=== PATIENT | female | born 1940 | race Caucasian/White ===

== ENCOUNTER 2016-05-03 11:17 | Inpatient (IN) | payer MEDICARE, OTHER ==
[~2016-05-03] VITALS: Ht 157.5 cm; Wt 54.1 kg
[~2016-05-03 11:17] MED LIST: ALTACE2.5 MG PO; ASA325 MG PO; BUSPAR5 MG PO; COLACE-DPS100 MG PO; GLUCOPHAGE-DPS500 MG PO; HABITROL DPS21 MG TD; LEXAPRO DPS10 MG PO; MEMANTINE HCL10 MG PO; MIRTAZAPINE15 MG PO; PLAVIX75 MG PO; PRAVACHOL20 MG PO; PRILOSEC DPS20 MG PO
--- NOTE | 2016-05-03 16:10 | ER ---
ADMIT: 05/03/2016 RM/LOC: ER [facility] MR#: [id number] [address] [address] MARYBETH TURCIOS [address] [place] [address] Emergency Room Report SEX: F AGE: 75 : 1940 DATE: 05/03/2016 TIME: 1117 hours. Please refer to my T-sheet for complete H and P. HISTORY OF PRESENT ILLNESS: Briefly, the patient is a 75-year-old, who comes in with general weakness, has not eaten anything they said for like 10 days. She has no appetite. She has had a history of depression, they have been trying to change her depression meds. She recently had some extrapyramidal effects from the Geodon she was on, so they stopped that and put her on Lexapro, I think it seemed to make things worse, she just has not eaten. General weakness, was seen by Dr. White in the clinic, sent here. PHYSICAL EXAMINATION: VITAL SIGNS: Blood pressure 161/69, pulse 93, respirations 12, temp 95.9, sat 99%. GENERAL: She is cachectic. HEENT: Grossly normal. Mucous membranes are dry. LUNGS: Clear. HEART: Regular. ABDOMEN: Soft, really nontender. SKIN: No rash. NEURO: She is alert, slow, but nonfocal. EMERGENCY DEPARTMENT COURSE: EKG was sinus rhythm, rate 85, no changes. CBC was normal except white count 10.4. Chemistries normal except sodium 121, potassium 2.8, glucose 101. We gave her a liter normal saline bolus. I gave her 40 mEq potassium p.o., and 20 mEq has been ordered IV. I talked to Dr. White, we will admit to the hospital. ASSESSMENT: 1. Hyponatremia. 2. Hypokalemia. 3. Weakness. 4. Depression. PLAN: Admit to the hospital. Ace Riley MD/ allan JOB #: [id number] CC: Ace Riley MD, Attending Physician
--- NOTE | 2016-05-09 08:42 | CO ---
ADMIT: 05/03/2016 RM/LOC: 402 [facility] MR#: [id number] [address] ALESHAASAELMARYBETH Younger [address] [place] [address] Consultation SEX: F AGE: 75 : 1940 DATE OF CONSULTATION: 05/08/2016 ATTENDING PHYSICIAN: Benjamin White CONSULTING PHYSICIAN: Lazaro Alvarado MD REASON FOR CONSULTATION: Depressed mood. HISTORY OF PRESENT ILLNESS: The patient is a 75-year-old female with a history of depression, anxiety, and dementia. She is seen today in her room via Telehealth, and she is accompanied by her daughter. The patient is a poor historian and states that she is doing well. She denies depressive symptoms and denies manic or psychotic symptoms. She also denies anxiety. Her daughter, however, reports that the patient has a history of depression and anxiety in addition to her dementia and has done well on the combination of Geodon, Lexapro, and Remeron. She, however, developed extrapyramidal side effects on the Geodon which has since been discontinued. She also stated that patient's Remeron was discontinued, and she is not exactly sure why. She, however, continued on Lexapro, and her mood has worsened in the last month, and she is depressed nearly every day with no motivation. She has lost interest in everything and has been neglecting herself. Her appetite is poor and she has lost a lot of weight. The patient's anxiety has increased and she is worrying a lot lately about everything. Her concentration is impaired and she is at times restless. The patient has memory impairment and her daughter states that it is unclear if it is progressing or steady. She has not been noted to be psychotic. PAST PSYCHIATRIC HISTORY: The patient has a history of depression and anxiety and possible vascular dementia. She has no prior psychiatric hospitalization and has no history of self harm. PAST MEDICAL HISTORY: Diabetes type 2, hyperlipidemia, carotid stenosis, osteopenia, migraine, and vascular dementia. MEDICATIONS: See medication list. ALLERGIES: ALENDRONATE. PAST FAMILY AND SOCIAL HISTORY: The patient is and retired. She lives alone. Her family lives around and she has a good support network. She denies alcohol use and continues to smoke about a pack of cigarettes a day. FAMILY HISTORY: Significant for bipolar disorder. REVIEW OF SYSTEMS: Ten systems reviewed and all other negative except as noted in the history. MENTAL STATUS EXAMINATION: The patient is seen via Telehealth. She is cooperative, but does not engage in interview. She makes good eye contact. ADMIT: 05/03/2016 RM/LOC: 402 [facility] MR#: [id number] [address] [address] MARYBETH TURCIOS [address] [place] [address] Consultation SEX: F AGE: 75 : 1940 She has a normal psychomotor activity. Her speech is soft. She describes mood as euthymic. Affect is blunted. Her thoughts are logical and goal directed. She denies suicidal, homicidal, or violent ideation. She denies hallucinations and no delusions noted at the interview. She is alert and oriented to person, place, but not to time. Her concentration and memory are impaired. Her language is intact. Her intelligence appears average. Her insight and judgement are limited. DIAGNOSES: 1. Major depressive disorder, recurrent, severe with anxious distress. 2. Possible major vascular neurocognitive disorder. PLAN: Discussed assessment and plan with the patient and her daughter and nursing staff. Change Lexapro to 20 mg daily. Start the patient on Remeron 15 mg at bedtime. Monitor for response and adverse effects and review the patient as appropriate. Thank you for your consult. Lazaro Alvarado MD/ allan JOB #: [id number] CC: Benjamin White, Attending Physician Benjamin White, Family Physician
[2016-05-11] MEDS ORDERED: LEXAPRO DPS20 MG PO (16:46)
[2016-05-11] MEDS ORDERED: NAMENDA10 MG PO (16:47)
[2016-05-11] MEDS ORDERED: CALCIUM 600 +1 EA16 PO (16:47)
[2016-05-11] MEDS ORDERED: PLAVIX75 MG PO (16:47)
[2016-05-11] MEDS ORDERED: PRILOSEC DPS20 MG PO (16:47)
[2016-05-11] MEDS ORDERED: ASA325 MG PO (16:47)
[2016-05-11] MEDS ORDERED: THERA1 EACH PO (16:47)
[2016-05-11] MEDS ORDERED: PRAVACHOL80 MG PO (16:51)
[2016-05-11] MEDS ORDERED: COMBIVENT RESPIM4 GM IH (16:51)
[2016-05-11] MEDS ORDERED: REMERON DPS15 MG PO (16:51)
--- NOTE | 2016-05-12 09:04 | HP ---
ADMIT: 05/03/2016 RM/LOC: 402 [facility] MR#: [id number] [address] [address] ALESHAASAELMARYBETH Younger [address] [place] [address] History and Physical SEX: F AGE: 75 : 1940 DATE OF SERVICE: CHIEF COMPLAINT: Weakness. HISTORY OF PRESENT ILLNESS: This is a 75-year-old female, with history of dementia, who had been doing well up until about a week ago. At that time, I saw her and she was noted to have some EPS related symptoms from being on Geodon, and her Geodon was stopped. Prior to that, struggled with anxiety for a long time, which was mostly debilitating given her underlying dementia as well. The Geodon seemed to help her immensely. She started to eat again, gained weight, gained strength and was able to participate in family discussions and "back to normal" according to her daughter, so last time I had put her on Lexapro, and we stopped Geodon, but over this last month she has done much worse. She has had nausea, vomiting, diarrhea of late. She has not eaten anything or drank much for the last week. She does not care for herself. She has not done anything. She has actually lost a lot a weight. She has lost 11 pounds since last time I saw her, so she is doing much-much worse. At the time I see her, she actually refuses anything is wrong. She does not talk very much. She is fairly distant, and so she was admitted to the hospital yesterday from my clinic. Today, she seems to be doing better. She denies any complaints today. She had some low sodiums which have been treated overnight and she denies any specific complaints, so really she cannot give me any specific history. PAST HISTORY: Includes: 1. Anxiety. 2. Depression. 3. Diabetes type 2. 4. Hyperlipidemia. 5. Carotid stenosis. 6. Osteopenia. 7. Migraine. 8. Dementia which is suspected to be vascular. PAST SURGICAL HISTORY: Include: 1. Hysterectomy. 2. Left carotid endarterectomy. ALLERGIES: ALENDRONATE, SHE REPORTS HER TEETH FELL OUT. FAMILY HISTORY: She has diabetes in her mother. Heart disease in her father. Diabetes in sister. Heart disease in a son. SOCIAL HISTORY: She continues to smoke about one pack per day. REVIEW OF SYSTEMS: Other complete review of systems, really unobtainable as patient refuses answer all questions just sits and stares at me. PHYSICAL EXAMINATION: VITAL SIGNS: Temperature 97.9, pulse 76, respirations ADMIT: 05/03/2016 RM/LOC: 402 [facility] MR#: [id number] [address] [address] MARYBETH TURCIOS [address] [place] [address] History and Physical SEX: F AGE: 75 : 1940 15, blood pressure 110/52, oxygen saturation 94% on room air. GENERAL: A well-appearing, elderly, 75-year-old female. She appears in no apparent distress. She is wearing glasses. Her movements seems low. She is not speaking much, does answer my questions. She is not oriented. HEENT: Pupils are equal, round, and reactive to light and accommodation. Extraocular muscles intact. Throat clear. NECK: Supple. Trachea is midline. Thyroid not palpable. HEART: Regular rate and rhythm. LUNGS: Diminished bilaterally. She does smell of cigarette smoke. ABDOMEN: Soft, without any elicitation of tenderness. EXTREMITIES: Lower extremities have no edema. She can move all extremities equally bilaterally. NEURO: Cranial nerves do appear intact. LABORATORY AND X-RAY DATA: Again, her sodium level initially was 121, it spiked up to 131; potassium was 2.8, it is now 3.4. Urine was done and unremarkable except for ketones. ASSESSMENT: 1. Dehydration. 2. Hyponatremia. 3. Mental status changes. 4. Dementia with behavior changes. 5. Anxiety and depression. PLAN: She is admitted to the hospital. We will give her some IV fluid. We will workup her low-sodium, it looks like her urine sodium osmolality is 159, indicating dehydration. We will continue her with IV normal saline till this comes back up. Follow her with social work and therapy. I will have Psychiatry see her as well to see if we can find out why she is having such problems. We will stop her Lexapro at the current time, I do not think it is surely helping her anyway. Benjamin White MD/ allan JOB #: [id number] CC: Benjamin White, Attending Physician Benjamin White, Family Physician
--- NOTE | 2016-05-13 13:34 | DS ---
ADMIT: 05/03/2016 RM/LOC: 402 [facility] MR#: [id number] [id number] [place], [place] [address] ALESHAASAELMARYBETH Younger [address] [place] [address] General Discharge Summary SEX: F AGE: 75 : 1940 ADMISSION DATE: 05/03/2016 DISCHARGE DATE: 05/10/2016 REASON FOR ADMISSION: See dictated H and P, but briefly, this is a 75-year- old female with history of anxiety and dementia, who presented with nausea, vomiting, diarrhea, and decreased mental status. HOSPITAL COURSE: The patient was admitted, found to be dehydrated and have severe hyponatremia with a sodium of 121, potassium of 2.8. She was admitted and given IV fluid. Psych consult obtained. She has also had her potassium replaced. Her sodium gradually came up nicely. Mental status did improve some, but she was also continued to be very distant. Psych consult did not really provide much help or change in her behavior. She had some tardive dyskinesia, so she was kept off her atypical antipsychotics, instead her Lexapro was increased to 20 mg daily and Remeron was added at night and her clonazepam was stopped. By the day of discharge, she was set up to be discharged to home with home health care. The family was well aware of her need for pretty extensive care because of her dementia and anxiety and potentials for not caring for herself appropriately, they understood and understood the risks and they did not want her to go to skilled care, so she was set up to be discharged home with home health care. DISCHARGE MEDICATIONS: Include: 1. Aspirin 325 mg daily. 2. Caltrate 600 mg daily. 3. Lexapro 20 mg daily. 4. Namenda 10 mg b.i.d. 5. Plavix 75 mg daily. 6. Pravachol 80 mg daily. 7. Omeprazole 20 mg daily. 8. Remeron 15 mg at bedtime. 9. Multivitamin daily. 10.Combivent 1 inhalation t.i.d. in the Respimat form. DISCHARGE INSTRUCTIONS: PT and OT and follow up with me in less than 1 week. BMP on the followup visit. Benjamin White MD/ allan JOB #: [id number] CC: Benjamin White MD, Attending Physician Benjamin White MD, Family Physician
== END 2016-05-10 11:45 | disposition home health service (06) | DRG 641 ==
LOC: ER 11:17 → 4PCU 13:10
PROVIDERS: ADMIT Internal Medicine
DX: E86.0 Dehydration (principal); I95.9 Hypotension, unspecified; F01.51 Vascular dementia, unspecified severity, with behavioral disturbance; E11.9 Type 2 diabetes mellitus without complications; F33.9 Major depressive disorder, recurrent, unspecified; E44.1 Mild protein-calorie malnutrition; E87.1 Hypo-osmolality and hyponatremia; E87.6 Hypokalemia; F41.9 Anxiety disorder, unspecified; E78.5 Hyperlipidemia, unspecified; I65.29 Occlusion and stenosis of unspecified carotid artery; M85.80 Other specified disorders of bone density and structure, unspecified site; G43.909 Migraine, unspecified, not intractable, without status migrainosus; F17.210 Nicotine dependence, cigarettes, uncomplicated; G24.01 Drug induced subacute dyskinesia; T43.505A Adverse effect of unspecified antipsychotics and neuroleptics, initial encounter; E83.42 Hypomagnesemia